=== PATIENT | female | born 1975 | race Caucasian/White ===

== ENCOUNTER 2023-06-23 09:04 | Emergency (ER) | payer OTHER, SELFPAY ==
[2023-06-23 09:05] VITALS: BP 121/71; PULSE 85; RESP 16; TEMP 36.6; O2SAT 99; BMI 31.8
[2023-06-23 10:03] LABS: Bacteria 0 SEEN /hpf (None Seen); Mucous, Urine 0 SEEN /hpf (<or=2+)
--- NOTE | 2023-06-23 10:04 | ED.VIS.GI ---
HPI HPI - GI History of Present Illness Chief Complaint: Abd Pain Informant: patient Narrative Narrative: Patient presenting with about 3 hours worth of intermittent discomfort in her left lower quadrant. She states the pain is not there currently. She states when it was, it initially felt like cramping, she just started her menstrual cycle yesterday, frequently gets cramping with it, but then she started sweating with it and it made her a little nauseated, which she states does not usually occur with her menstrual cycle which is why she came to the ER. She denies any new urinary symptoms. She has not had any heavy bleeding but states typically on the second day of her cycle which is today, she will start to get heavier bleeding. She denies any melena, she had a little bit of diarrhea the last time she went but just once. She denies any fevers or chills or other recent illness. She has a history of an ovary and tube being removed but she cannot remember which 1. PFSH PFSH Home Medications bupropion HCl 300 mg 24 hr tablet, extended release 300 mg PO DAILY 06/29/14 [History Last Taken Unknown] levomefolate 15 mg-algal oil 90.314 mg capsule (Deplin (algal oil)) 15 mg PO DAILY 06/29/14 [History Last Taken Unknown] montelukast 10 mg tablet 10 mg PO DAILY 06/29/14 [History Last Taken Unknown] oxycodone-acetaminophen 5 mg-325 mg tablet 1 - 2 tab PO Q4H PRN PRN Moderate Pain ##20 07/02/14 [Rx Last Taken Unknown] Allergy/AdvReac Type Severity Reaction Status Date / Time Penicillins AdvReac Other Verified 06/23/23 09:05 sucrose AdvReac Other Verified 06/23/23 09:05 Surgical History (Updated 06/23/23 @ 10:[address] Mason Mancia MD) History of right salpingo-oophorectomy Social History Smoking Status: Never smoker ROS ROS ED Constitutional Constitutional ED: Denies chills or fever(s) Eyes Eyes: Denies change in vision or diplopia ENT ENT ED: Denies rhinorrhea or sore throat Cardiovascular Cardiovascular: Denies chest pain or palpitations Respiratory/Chest Respiratory/Chest: Denies cough or dyspnea Gastrointestinal Gastrointestinal: Reports abdominal pain and diarrhea; Denies nausea or vomiting Genitourinary Genitourinary ED: Reports as per HPI and vaginal bleeding; Denies dysuria or hematuria Musculoskeletal Musculoskeletal: Denies back pain or neck pain Integumentary Denies abscess or rash Neurologic Neurologic: Denies headache(s), paresthesias or weakness Psychiatric Psychiatric: Denies suicidal thoughts EXAM Physical Exam Const Vital Signs: 06/23/23 09:05 Temperature 97.8 F Temperature Source Temporal Pulse Rate 85 Respiratory Rate 16 Blood Pressure 121/71 H Blood Pressure Mean 87 Pulse Ox 99 Oxygen Delivery Method Room Air Positive well nourished and well developed General Appearance ED: well developed and NAD HEENT Reports moist mucous membranes normocephalic and atraumatic Eyes PERRL and EOMs intact bilaterally Neck full ROM and supple Resp normal respiratory effort and clear to auscultation bilaterally Cardio regular rate, regular rhythm and no murmurs GI non-tender and non-distended Auscultation: normoactive bowel sounds Palpation: soft Speculum Exam - Vagina: vaginal bleeding Back/Spine no CVA tenderness General Back: other FROM Extremity normal to inspection General Extremety ED: Negative for edema, pulses abnormal or tenderness General Extremity: Negative for edema or pulses abnormal Neuro oriented x3, CN's II-XII intact bilaterally and no sensory deficits noted Sensorium / Orientation: awake and alert Motor Exam: strength 5/5 throughout Psych mental status grossly normal and thought process normal Mood & Affect: anxious Skin no rashes or lesions noted and no wounds MDM MDM MDM Narrative Medical decision making narrative: Patient has no pain right now, very benign abdomen, normal vital signs, and I am not able to reproduce any of her pain with palpation. Therefore this makes an obstructive uropathy, ovarian torsion, tubo-ovarian abscess, ectopic , diverticulitis, perforated viscus, bowel obstruction extremely unlikely. I really cannot justify doing a CT scan on this patient at this time. I discussed this with her, and discussed that things change, and that may change if clinically other things changes well. For now I think it would be totally reasonable to obtain a screening catheter urine, since she currently is on her menstrual cycle, to screen for blood as well as a KUB, both to screen for urolithiasis. She is comfortable with that plan and getting some prophylactic Toradol since nurses place an IV. KUB 1 view on my interpretation negative for any acute. Radiology mentions a possible 3 mm renal stone on the right, incidental finding. Her urine does show blood (it is grossly bloody), no infection, and is negative. On reevaluation the patient remains pain-free. I encouraged her to return if she has recurrent persistent symptoms, as I would be happy to reevaluate her. The hematuria in her urine is a clean-catch, she declined catheterization, therefore I do suspect this is contamination from her menstrual cycle which she agrees with, and not necessarily indicative of urolithiasis. Lab Data Attestation: I reviewed the patient's lab results. Labs: Laboratory Results - last 24 hr 06/23/23 09:55 Urine Color Red Urine Clarity Cloudy Urine pH 7.0 Ur Specific [place] 1.015 Urine Protein 100 H Urine Glucose (UA) Normal Urine Ketones 5 H Urine Occult Blood 250 H Urine Nitrite Negative Urine Bilirubin Negative Urine Urobilinogen Normal Ur Leukocyte Esterase 100 H Urine RBC > 100 SEEN Urine WBC 0 SEEN Ur Squamous Epith Cells 0-5 SEEN Urine Bacteria 0 SEEN Urine Mucus 0 SEEN Urine Test Negative Radiography Diagnostic Testing: Clinical Impression(s) from Imaging Studies KUB X-Ray 06/23/23 10:20 IMPRESSION: No acute abnormality. Question 3 mm right renal stone. Electronically Signed: Eduardo Bacon MD at 10:37 EDT , Discharge Plan Triage Chief Complaint: Abd Pain ED Provider: Mason Mancia Dx/Rx/DC Orders Clinical Impression: Intermittent left lower quadrant abdominal pain Instructions: ED Pelvic Pain, Unknown Cause Prescriptions: No Action montelukast 10 MG tablet 10 mg PO DAILY bupropion HCl 300 MG tablet extended release 24 hr 300 mg PO DAILY levomefolate-algal oil [[place]in (algal oil)] 15 MG capsule 15 mg PO DAILY oxycodone-acetaminophen 1 TABLET tablet 1 - 2 tab PO Q4H PRN PRN (Reason: Moderate Pain) Qty: 20 0RF Primary Care Provider: Corinna Barrientos Referrals: Corinna Barrientos, [Primary Care Provider] - 1-2 Days if not improving Disposition Disposition: Home, Self Care
[2023-06-23] MEDS: Ketorolac 30 MG/ML Syringe IV (10:13)
[2023-06-23 10:15] LABS: Color, Urine Red (Yellow); Glucose, Dipstick Normal (Normal); Ketone-Dipstick 5 mg/dl (Negative); Leukocyte Esterase-Dipstick 100 /ul (Negative); Nitrite-Dipstick Negative (Negative); Occult Blood-Urine 250 /ul (Negative); Protein-Dipstick 100 mg/dl (Negative); Specific Gravity, Urine 1.015 (1.002-1.030); Urine Bilirubin Dipstick Negative (Negative); Urine Clarity Cloudy (Clear); Urine Urobilinogen Normal (Normal)
--- NOTE | 2023-06-23 10:20 | RAD_ITS ---
EXAM: XR ABDOMEN, 1 VIEW CLINICAL INDICATION: left flank pain TECHNIQUE: Frontal supine view of the abdomen/pelvis. COMPARISON: No relevant prior studies available. FINDINGS: GASTROINTESTINAL TRACT: Normal bowel gas pattern. ORGANS: Question 3 mm stone in the upper pole of the right kidney. No organomegaly. BONES/JOINTS: No acute abnormality. RAD/Abdomen Single View IMPRESSION: No acute abnormality. Question 3 mm right renal stone. Electronically Signed: Eduardo Bacon MD at 10:37 EDT ,
[2023-06-23 10:38] LABS: Internal QC Validated? YES +Cl - CLEAR BKGD; Pregnancy, Urine Negative Negative; Red Blood Cells-Urine > 100 SEEN /hpf (0-5); Squamous Epithelial Cells - UA 0-5 SEEN /hpf (5-10); White Blood Cells 0 SEEN /hpf (0-5)
[2023-06-23 10:39] LABS: Record Kit Lot#,Urine Preg 718086
[2023-06-23 11:16] VITALS: BP 117/71; PULSE 80; RESP 14; TEMP 36.4; O2SAT 98
== END 2023-06-23 11:19 | disposition home or self-care (01) ==
PROVIDERS: Emergency Provider Emergency Medicine; Visit Provider Emergency Medicine
DX: R10.32 Left lower quadrant pain (principal)
CPT/HCPCS: 74018; 81001; 81025; 96374; 99283; A4216